=== PATIENT | male | born 1975 | race Caucasian/White ===

== ENCOUNTER 2023-08-10 04:19 | Emergency (ER) | payer OTHER ==
[2023-08-10 04:59] VITALS: RESP 18
[2023-08-10] MEDS ORDERED: ONDANSETRON 4 MG/2 ML VIAL IVP STA (05:27)
[2023-08-10] MEDS ORDERED: SODIUM CHLORIDE 0.9% 1,000 ML IV STA (05:27)
[2023-08-10 05:55] LABS: Basophils % (A) 0 %; Eosinophils # (A) 0.1 k/uL (0-0.7); Eosinophils % (A) 1 %; HCT 48.1 % (39.0-53.0); HGB 16.2 gm/dL (13.0-17.5); Lymphocytes # (A) 0.8 k/uL (1.0-4.8); Lymphocytes % (A) 8 %; MCHC 33.7 g/dL (31.0-37.0); Mean Platelet Volume 7.1; Monocytes # (A) 0.4 k/uL (0-1.0); Monocytes % (A) 4 %; Neutrophils # (A) 8.5 k/uL (1.3-7.7); Neutrophils % (A) 86 %; Platelet Count 336 k/uL (150-450); RBC 5.59 m/uL (4.30-5.90); RDW 12.7 % (11.5-15.5); WBC 9.9 k/uL (3.8-10.6)
[2023-08-10 06:03] LABS: ALT 49 U/L (4-49); AST 31 U/L (17-59); African American GFR (CKD) >90 (>60 ml/min/1.73 sqM); Albumin 4.4 g/dL (3.5-5.0); Alkaline Phosphatase 120 U/L (38-126); Anion Gap 11 mmol/L; Blood Urea Nitrogen 15 mg/dL (9-20); Calcium 9.6 mg/dL (8.4-10.2); Carbon Dioxide 23 mmol/L (22-30); Chloride 105 mmol/L (98-107); Glucose 140 mg/dL (74-99); Lipase 74 U/L (23-300); Non-African American GFR(CKD) >90 (>60 ml/min/1.73 sqM); Potassium 4.3 mmol/L (3.5-5.1); Sodium 139 mmol/L (137-145); Total Bilirubin 0.7 mg/dL (0.2-1.3); Total Protein 7.3 g/dL (6.3-8.2)
--- NOTE | 2023-08-10 07:31 | CT ---
EXAMINATION TYPE: CT abdomen pelvis w con CT DLP: 1299 mGycm, Automated exposure control for dose reduction was used. DATE OF EXAM: 08/10/2023 6:13 AM COMPARISON: None CLINICAL INDICATION:Male, 47 years old with history of abdominal pain; TECHNIQUE: Axial CT of the ;CT abdomen pelvis w con;Sagittal and coronal reformats were created on a separate workstation. Contrast used: mL of , (none if empty) Oral contrast used: (none if empty) FINDINGS: LOWER CHEST: 6 mm lingular pulmonary nodule ABDOMEN LIVER: Unremarkable GALLBLADDER AND BILE DUCTS: There is surgical clips Gallbladder. A structure that appears similar to gallbladder structure has a gallstone. PANCREAS: Unremarkable. SPLEEN: Unremarkable. ADRENAL GLANDS: Unremarkable. KIDNEYS AND URETERS: No evidence of hydronephrosis or renal calculus. The ureters are unremarkable. PELVIS BLADDER: Unremarkable REPRODUCTIVE: Unremarkable. ABDOMEN & PELVIS STOMACH AND BOWEL: Fat stranding changes around the distal esophagus and the gastroesophageal junctio n. No evidence of bowel obstruction. Appendix is normal. PERITONEUM/RETROPERITONEUM: No evidence of pneumoperitoneum or free fluid. VASCULATURE: No evidence of aortic aneurysm. MUSCULOSKELETAL: No acute osseous abnormalities LYMPH NODES: No gross evidence for lymphadenopathy. SOFT TISSUE/ABDOMINAL WALL: Unremarkable IMPRESSION: 1. Mild Fat stranding changes around the distal esophagus and gastroesophageal junction with a small hiatal hernia. Correlate for esophagitis. Otherwise no evidence for acute intraluminal process. 2. Remnant gallbladder versus subtotal cholecystectomy with cholelithiasis. Further evaluation with ultrasound. 3. 6 mm pulmonary nodule in the lingula. In low-risk patients: CT at 6-12 months, then consider CT a t 18-24 months, and in high-risk patients: CT at 6-12 months, then CT at 18-24 months. Follow up recommendations for incidental pulmonary nodules, if there are any, are per [employer] or [employer].
[2023-08-10 07:41] LABS: Appearance,Urine Clear (Clear); Bilirubin,Urine Negative (Negative); Blood,Urine Negative (Negative); Color,Urine Colorless; Glucose,Urine (UA) Negative (Negative); Ketones,Urine Negative (Negative); Leukocyte Esterase,Urine Negative (Negative); Nitrite,Urine Negative (Negative); Protein,Urine Negative (Negative); Urobilinogen,Urine <2.0 mg/dL (<2.0)
[2023-08-10] MEDS ORDERED: diphenhydrAMINE 50 MG/ML 1 ML VIAL IVP STA (08:06)
[2023-08-10] MEDS ORDERED: METOCLOPRAMIDE 5 MG/ML 2 ML VIAL IVP STA (08:06)
[2023-08-10] MEDS ORDERED: DICYCLOMINE 10 MG CAP PO STA (08:06)
[2023-08-10] MEDS ORDERED: FAMOTIDINE 20 MG/2 ML VIAL IV STA (08:06)
--- NOTE | 2023-08-10 08:10 | ED ---
Abdominal Pain HPI - General Source: patient Mode of arrival: ambulatory Limitations: no limitations <Rehana Dash - Last Filed: 08/10/23 08:48> <Christiano Calle - Last Filed: 08/10/23 10:37> - General Chief Complaint: Abdominal Pain Stated Complaint: Nausea,vomitting Time Seen by Provider: 08/10/23 08:08 - History of Present Illness Initial Comments: 47-year-old male with past medical history of cholecystectomy who presents to the emergency department reporting abdominal pain. It started at 10:00 last night. He reports that it is epigastric in nature without radiation. He denies any sick contacts with similar symptoms. He denies eating any tainted foods. Feels similar to when he had gallbladder issues in the past however he is status post cholecystectomy. He denies any fevers. No hematemesis. No diarrhea, constipation, black or bloody stools. He took a few Tums at home to help alleviate his symptoms. Due to his persistent vomiting he decided to come into the emergency room for evaluation. No other alleviating, precipitating or modifying factors. (Rehana Dash) - Related Data Allergies Allergy/AdvReac Type Severity Reaction Status Date / Time No Known Allergies Allergy Verified 08/10/23 04:35 Review of Systems ROS Other: All systems not noted in ROS Statement are negative. <Rehana Dash - Last Filed: 08/10/23 08:48> ROS Other: All systems not noted in ROS Statement are negative. <Christiano Calle - Last Filed: 08/10/23 10:37> ROS Statement: Those systems with pertinent positive or pertinent negative responses have been documented in the HPI. Past Medical History History of Any Multi-Drug Resistant Organisms: None Reported Past Surgical History: Cholecystectomy Past Psychological History: Anxiety, Depression Smoking Status: Vaper Past Alcohol Use History: Occasional Past Drug Use History: Marijuana <Rehana Dash - Last Filed: 08/10/23 08:48> General Exam Limitations: no limitations General appearance: alert, in no apparent distress Head exam: Present: atraumatic, normocephalic, normal inspection Eye exam: Present: normal appearance, PERRL, EOMI. Absent: scleral icterus, con junctival injection, periorbital swelling ENT exam: Present: normal exam, mucous membranes moist Neck exam: Present: normal inspection. Absent: tenderness, meningismus, lymphadenopathy Respiratory exam: Present: normal lung sounds bilaterally. Absent: respiratory distress, wheezes, rales, rhonchi, stridor Cardiovascular Exam: Present: regular rate, normal rhythm, normal heart sounds. Absent: systolic murmur, diastolic murmur, rubs, gallop, clicks GI/Abdominal exam: Present: soft, tenderness (Epigastric), normal bowel sounds. Absent: distended, guarding, rebound, rigid Extremities exam: Present: normal inspection, full ROM, normal capillary refill. Absent: tenderness, pedal edema, joint swelling, calf tenderness Back exam: Present: normal inspection Neurological exam: Present: alert, oriented X3, CN II-XII intact Psychiatric exam: Present: normal affect, normal mood Skin exam: Present: warm, dry, intact, normal color. Absent: rash <Rehana Dash - Last Filed: 08/10/23 08:48> Course Vital Signs 08/10/23 08/10/23 04:32 07:33 Temperature 98.4 F 98.6 F Pulse Rate 88 73 Respiratory 18 18 Rate Blood Pressure 151/106 150/106 O2 Sat by Pulse 97 95 Oximetry Medical Decision Making - Lab Data Result diagrams: 08/10/23 05:47 08/10/23 05:47 <Rehana Dash - Last Filed: 08/10/23 08:48> - Lab Data Result diagrams: 08/10/23 05:47 08/10/23 05:47 <Christiano Calle - Last Filed: 08/10/23 10:37> - Medical Decision Making Was pt. sent in by a medical professional or institution ([facility], [facility] [employer], urgent care, hospital, or alf...) When possible be specific @ -No Did you speak to anyone other than the patient for history (EMS, parent, family, police, friend...)? What history was obtained from this source @ -No Did you review nursing and triage notes (agree or disagree)? Why? @ -I reviewed and agree with nursing and triage notes Were old charts reviewed (outside hosp., previous admission, EMS record, old EKG, old radiological studies, urgent care reports/EKG's, alf records)? Report findings @ -No old charts were reviewed Differential Diagnosis (chest pain, altered mental status, abdominal pain women, abdominal pain men, vaginal bleeding, weakness, fever, dyspnea, syncope, headache, dizziness, GI bleed, back pain, seizure, CVA, palpatations, mental health, musculoskeletal)? @ -Differential Abdominal Pain Men: Appendicitis, cholecystitis, diverticulosis, ischemic bowel, pancreatitis, hepatitis, UTI, gastroenteritis, AAA, incarcerated hernia, bowel obstruction, constipation, inflammatory bowel, hepatitis, peptic ulcer disease, splenic infarction, perforated viscus, testicular torsion, this is not meant to be an all-inclusive list EKG interpreted by me (3pts min.). @ -Not done X-rays interpreted by me (1pt min.). @ -None done CT interpreted by me (1pt min.). @ -Yes and demonstrates possible partial gallbladder U/S interpreted by me (1pt. min.). @ -Pending What testing was considered but not performed or refused? (CT, X-rays, U/S, labs)? Why? @ -None What meds were considered but not given or refused? Why? @ -None Did you discuss the management of the patient with other professionals (professionals i.e. , PA, [employer], lab, RT, psych nurse, director of social work, communication assistant, teacher, senior grants officer, shelter case manager)? Give summary @ -Dr. Calle will assume care of the patient Was smoking cessation discussed for >3mins.? @ -No Was critical care preformed (if so, how long)? @ -No Were there social determinants of health that impacted care today? How? (Homelessness, low income, unemployed, alcoholism, drug addiction, transportation, low edu. Level, literacy, decrease access to med. care, alf, rehab)? @ -No Was there de-escalation of care discussed even if they declined (Discuss DNR or withdrawal of care, Hospice)? DNR status @ -No What co-morbidities impacted this encounter? (DM, HTN, Smoking, COPD, CAD, Cancer, CVA, ARF, Chemo, Hep., AIDS, mental health diagnosis, sleep apnea, morbid obesity)? @ -None Was patient admitted / discharged? Hospital course, mention meds given and route, prescriptions, significant lab abnormalities, going to OR and other pertinent info. @ -Upon arrival patient was placed into room 4. Thorough history and physical exam was performed. IV access is established. He was given Zofran for nausea. Laboratory studies are conducted. He does go for CT. Patient reevaluated and continues to feel nauseated therefore he was given Reglan, Zofran and Pepcid. I discussed the results with the patient. At this time we will perform an ultrasound due to abnormal abdominal CT. Patient will be signed out to Dr. Calle pending this study Undiagnosed new problem with uncertain prognosis? @ -yes Drug Therapy requiring intensive monitoring for toxicity (Heparin, Nitro, Insulin, Cardizem)? @ -No Were any procedures done? @ -No (Rehana Dash) Ultrasound report with questionable cystic structure versus reminiscent Patient reevaluated and resting comfortably in bed. Abdomen soft and nontender. Patient states discomfort is mild at this time. Patient states he has had similar episodes several times previously, this one just lasted longer. Patient did have previous cholecystectomy done in [place] years ago. Case was discussed with Dr. Saucedo who did review CT and ultrasound. Things patient does have reminiscent of gallbladder still. He states patient can be discharged and follow-up. Patient is updated and need for follow-up. (Christiano Calle) - Lab Data Lab Results 08/10/23 08/10/23 08/10/23 Range/Units 05:47 05:47 05:47 WBC 9.9 (3.8-10.6) k/uL RBC 5.59 (4.30-5.90) m/uL Hgb 16.2 (13.0-17.5) gm/dL Hct 48.1 (39.0-53.0) % MCV 86.0 (80.0-100.0) fL MCH 29.0 (25.0-35.0) pg MCHC 33.7 (31.0-37.0) g/dL RDW 12.7 (11.5-15.5) % Plt Count 336 (150-450) k/uL MPV 7.1 Neutrophils % 86 % Lymphocytes % 8 % Monocytes % 4 % Eosinophils % 1 % Basophils % 0 % Neutrophils # 8.5 H (1.3-7.7) k/uL Lymphocytes # 0.8 L (1.0-4.8) k/uL Monocytes # 0.4 (0-1.0) k/uL Eosinophils # 0.1 (0-0.7) k/uL Basophils # 0.0 (0-0.2) k/uL Sodium 139 (137-145) mmol/L Potassium 4.3 (3.5-5.1) mmol/L Chloride 105 (98-107) mmol/L Carbon Dioxide 23 (22-30) mmol/L Anion Gap 11 mmol/L BUN 15 (9-20) mg/dL Creatinine 0.93 (0.66-1.25) mg/dL Est GFR (CKD-EPI)AfAm >90 (>60 ml/min/1.73 sqM) Est GFR (CKD-EPI)NonAf >90 (>60 ml/min/1.73 sqM) Glucose 140 H (74-99) mg/dL Lactic Ac Sepsis Rflx Plasma Lactic Acid Xander 2.1 H* (0.7-2.0) mmol/L Calcium 9.6 (8.4-10.2) mg/dL Total Bilirubin 0.7 (0.2-1.3) mg/dL AST 31 (17-59) U/L ALT 49 (4-49) U/L Alkaline Phosphatase 120 (38-126) U/L Total Protein 7.3 (6.3-8.2) g/dL Albumin 4.4 (3.5-5.0) g/dL Lipase 74 (23-300) U/L Urine Color Urine Appearance (Clear) Urine pH (5.0-8.0) Ur Specific [place] (1.001-1.035) Urine Protein (Negative) Urine Glucose (UA) (Negative) Urine Ketones (Negative) Urine Blood (Negative) Urine Nitrite (Negative) Urine Bilirubin (Negative) Urine Urobilinogen (<2.0) mg/dL Ur Leukocyte Esterase (Negative) Influenza Type A (PCR) (Not Detectd) Influenza Type B (PCR) (Not Detectd) RSV (PCR) (Not Detectd) SARS-CoV-2 (PCR) (Not Detectd) 08/10/23 08/10/23 08/10/23 Range/Units 05:58 06:07 06:49 WBC (3.8-10.6) k/uL RBC (4.30-5.90) m/uL Hgb (13.0-17.5) gm/dL Hct (39.0-53.0) % MCV (80.0-100.0) fL MCH (25.0-35.0) pg MCHC (31.0-37.0) g/dL RDW (11.5-15.5) % Plt Count (150-450) k/uL MPV Neutrophils % % Lymphocytes % % Monocytes % % Eosinophils % % Basophils % % Neutrophils # (1.3-7.7) k/uL Lymphocytes # (1.0-4.8) k/uL Monocytes # (0-1.0) k/uL Eosinophils # (0-0.7) k/uL Basophils # (0-0.2) k/uL Sodium (137-145) mmol/L Potassium (3.5-5.1) mmol/L Chloride (98-107) mmol/L Carbon Dioxide (22-30) mmol/L Anion Gap mmol/L BUN (9-20) mg/dL Creatinine (0.66-1.25) mg/dL Est GFR (CKD-EPI)AfAm (>60 ml/min/1.73 sqM) Est GFR (CKD-EPI)NonAf (>60 ml/min/1.73 sqM) Glucose (74-99) mg/dL Lactic Ac Sepsis Rflx Y Plasma Lactic Acid Xander (0.7-2.0) mmol/L Calcium (8.4-10.2) mg/dL Total Bilirubin (0.2-1.3) mg/dL AST (17-59) U/L ALT (4-49) U/L Alkaline Phosphatase (38-126) U/L Total Protein (6.3-8.2) g/dL Albumin (3.5-5.0) g/dL Lipase (23-300) U/L Urine Color Colorless Urine Appearance Clear (Clear) Urine pH 7.0 (5.0-8.0) Ur Specific [place] 1.050 H (1.001-1.035) Urine Protein Negative (Negative) Urine Glucose (UA) Negative (Negative) Urine Ketones Negative (Negative) Urine Blood Negative (Negative) Urine Nitrite Negative (Negative) Urine Bilirubin Negative (Negative) Urine Urobilinogen <2.0 (<2.0) mg/dL Ur Leukocyte Esterase Negative (Negative) Influenza Type A (PCR) Not Detected (Not Detectd) Influenza Type B (PCR) Not Detected (Not Detectd) RSV (PCR) Not Detected (Not Detectd) SARS-CoV-2 (PCR) Not Detected (Not Detectd) 08/10/23 Range/Units 08:26 WBC (3.8-10.6) k/uL RBC (4.30-5.90) m/uL Hgb (13.0-17.5) gm/dL Hct (39.0-53.0) % MCV (80.0-100.0) fL MCH (25.0-35.0) pg MCHC (31.0-37.0) g/dL RDW (11.5-15.5) % Plt Count (150-450) k/uL MPV Neutrophils % % Lymphocytes % % Monocytes % % Eosinophils % % Basophils % % Neutrophils # (1.3-7.7) k/uL Lymphocytes # (1.0-4.8) k/uL Monocytes # (0-1.0) k/uL Eosinophils # (0-0.7) k/uL Basophils # (0-0.2) k/uL Sodium (137-145) mmol/L Potassium (3.5-5.1) mmol/L Chloride (98-107) mmol/L Carbon Dioxide (22-30) mmol/L Anion Gap mmol/L BUN (9-20) mg/dL Creatinine (0.66-1.25) mg/dL Est GFR (CKD-EPI)AfAm (>60 ml/min/1.73 sqM) Est GFR (CKD-EPI)NonAf (>60 ml/min/1.73 sqM) Glucose (74-99) mg/dL Lactic Ac Sepsis Rflx Plasma Lactic Acid Xander 1.1 (0.7-2.0) mmol/L Calcium (8.4-10.2) mg/dL Total Bilirubin (0.2-1.3) mg/dL AST (17-59) U/L ALT (4-49) U/L Alkaline Phosphatase (38-126) U/L Total Protein (6.3-8.2) g/dL Albumin (3.5-5.0) g/dL Lipase (23-300) U/L Urine Color Urine Appearance (Clear) Urine pH (5.0-8.0) Ur Specific [place] (1.001-1.035) Urine Protein (Negative) Urine Glucose (UA) (Negative) Urine Ketones (Negative) Urine Blood (Negative) Urine Nitrite (Negative) Urine Bilirubin (Negative) Urine Urobilinogen (<2.0) mg/dL Ur Leukocyte Esterase (Negative) Influenza Type A (PCR) (Not Detectd) Influenza Type B (PCR) (Not Detectd) RSV (PCR) (Not Detectd) SARS-CoV-2 (PCR) (Not Detectd) Disposition <Rehana Dash - Last Filed: 08/10/23 08:48> Is patient prescribed a controlled substance at d/c from ED?: No Time of Disposition: 10:36 <Christiano Calle - Last Filed: 08/10/23 10:37> Clinical Impression: Abdominal pain Disposition: HOME SELF-CARE Condition: Stable Instructions (If sedation given, give patient instructions): Abdominal Pain (ED) Additional Instructions: Please do follow-up with primary care physician and surgeon in the next few days for recheck. Please have primary care physician review computed tomography scan. You will need repeat imaging for pulmonary nodule. Return for increased pain, fever, vomiting, difficult to breathing, worsening or changing symptoms or any other concerns. Referrals: Peter Persaud MD [STAFF PHYSICIAN] - 1-2 days Jhonny Recio MD [Medical Doctor] - 1-2 days
--- NOTE | 2023-08-10 09:58 | US ---
EXAMINATION TYPE: US gallbladder DATE OF EXAM: 08/10/2023 COMPARISON: CT 2022 CLINICAL INDICATION: Male, 47 years old with history of abn ct; Abdomen pain, N/V, history of cholecy stectomy 2014 TECHNIQUE: Multiple sonographic images of the right upper quadrant are obtained. FINDINGS: EXAM MEASUREMENTS: Liver Length: 16.8 cm CBD: 0.5 cm Right Kidney: 11.0 x 4.1 x 5.4 cm Difficult and limited study due to overlying bowel gas Pancreas: obscured by overlying midline bowel gas Liver: increased echogenicity, mildly heterogeneous Gallbladder: patient states gallbladder was removed, anechoic structure seen in gallbladder fossa wi th 0.7cm echogenic focus seen within structure Evidence for sonographic Fuentes's sign: no CBD: visualized portions wnl, limited by overlying bowel gas Right Kidney: wnl IMPRESSION: 1. There is persistent cystic structure within the gallbladder fossa which could represent cystic du ct remnant with gallstone versus subtotal cholecystectomy. 2. Hepatocellular disease commonly hepatic steatosis.
[2023-08-10 11:00] VITALS: BP 140/98; PULSE 80; TEMP 97.7
== END 2023-08-10 10:46 | disposition home or self-care (01) ==
LOC: EC 04:19
DX: K76.0 Fatty (change of) liver, not elsewhere classified (principal); K44.9 Diaphragmatic hernia without obstruction or gangrene; F12.90 Cannabis use, unspecified, uncomplicated; F17.290 Nicotine dependence, other tobacco product, uncomplicated; Z90.49 Acquired absence of other specified parts of digestive tract; Z86.59 Personal history of other mental and behavioral disorders; Z20.822 Contact with and (suspected) exposure to COVID-19
CPT/HCPCS: 36415; 80053; 83605; 83690; 85025; 81003; 87636; 76705; 74177; 99284; 96374; 96375 ×3; 96361; J1200; J2765; J2405; J3490

== ENCOUNTER → 2024-01-28 | Outpatient (CLI) | payer OTHER ==
--- NOTE | 2024-01-28 09:08 | CT ---
EXAMINATION TYPE: CT abdomen wo/w con CT DLP: 1379.70 mGycm, Automated exposure control for dose reduction was used. DATE OF EXAM: 01/28/2024 8:15 AM COMPARISON: CT abdomen pelvis most recent from CLINICAL INDICATION:Male, 48 years old with history of K80.20 CALCULUS OF GALLBLADDER W/O CHOLECYSTIT IS W; Post alisson sx, please assess surgical site for perihepatic fluid. TECHNIQUE: Axial CT abdomen wo/w con;Sagittal and coronal reformats were created on a separate works tation. Contrast used:100 mL of Isovue 300 with IV Contrast, (none if empty) Oral contrast used: with Oral Contrast (none if empty) FINDINGS: LOWER CHEST: Unremarkable ABDOMEN LIVER: Unremarkable GALLBLADDER AND BILE DUCTS: Gallbladder is not definitively visualized may be surgically absent. PANCREAS: Unremarkable. SPLEEN: Unremarkable. ADRENAL GLANDS: Unremarkable. KIDNEYS AND URETERS: No evidence of hydronephrosis or renal calculus. The ureters are unremarkable. STOMACH AND BOWEL: No evidence of bowel obstruction. The appendix is partially visualized and normal. PERITONEUM/RETROPERITONEUM: No evidence of pneumoperitoneum or free fluid. VASCULATURE: No evidence of aortic aneurysm. MUSCULOSKELETAL: No acute osseous abnormalities LYMPH NODES: No gross evidence for lymphadenopathy. SOFT TISSUE/ABDOMINAL WALL: Fat-containing umbilical hernia. IMPRESSION: 1. No evidence for acute abdominal process. 2. Gallbladder is not definitively visualized. There is a irregular soft tissue in the gallbladder f marley likely representing postsurgical change. Findings are new from 08/10/2023. Correlate with histor y of cholecystectomy. Prior exam demonstrated dilated tubular structure with cholecystectomy clips po ssibly representing subtotal cholecystectomy on 08/10/2023 exam. 3. Hepatic steatosis.
== END | disposition home or self-care (01) ==
LOC: RADCTMAIN 07:12
PROVIDERS: ATTEND Surgery
DX: K76.0 Fatty (change of) liver, not elsewhere classified (principal); K80.20 Calculus of gallbladder without cholecystitis without obstruction; Z90.49 Acquired absence of other specified parts of digestive tract
CPT/HCPCS: 74170; Q9967

== ENCOUNTER → 2024-08-04 | Outpatient (CLI) | payer OTHER ==
--- NOTE | 2024-08-06 22:59 | CT ---
EXAMINATION TYPE: CT brain wo/w con DATE OF EXAM: 08/04/2024 9:08 AM COMPARISON: None. CLINICAL INDICATION: Male, 48 years old with history of G43.109 MIGRAINE WITH AURA, NOT INTRACTABLE, W/O S, Strange smell and migraines for a month TECHNIQUE: CT of the brain is performed utilizing 3 mm thick sections through the posterior fossa and 3 mm thick sections through the remaining calvarium. Study is performed within 24 hours of arrival to the hospital. Contrast used:100 mL of Isovue 300 with IV Contrast, (none if empty) CT DLP: 2059.8 mGycm, Automated exposure control for dose reduction was used. FINDINGS: No abnormal hyperdensity is present to suggest an acute intracranial hemorrhage. No mass lesion is evident. No acute infarcts are evident. Ventricles and sulci are appropriate for the patient age. Paranasal sinuses and mastoid air cells within the [id number] are clear. Performed plate appears n ormal. No abnormal enhancement is evident. IMPRESSION: 1. No acute intracranial process. Follow up MRI can be performed as clinically indicated. [facility], , 08/06/2024 10:57 PM
== END | disposition home or self-care (01) ==
LOC: RADCTMAIN 07:12
PROVIDERS: ATTEND Family Medicine
DX: G43.109 Migraine with aura, not intractable, without status migrainosus (principal)
CPT/HCPCS: 70470; Q9967; 36415